=== PATIENT | female | born 1955 | race Two or more races ===

== ENCOUNTER 2019-05-04 01:10 | Inpatient (IN) | payer OTHER ==
[~2019-05-04] VITALS: Ht 157.5 cm; Wt 64.9 kg
[2019-05-04 04:35] VITALS: BP 110/53
--- NOTE | 2019-05-04 04:35 | NUR ---
MS DERMATOLOGY SALES REPRESENTATIVE NOTES PATIENT TRANSFERRED BY AMBULANCE FROM [facility]. PATIENT COMPLAINING OF RIGHT UPPER QUADRANT PAIN, N/V, FOR THE PAST 4 DAYS. PATIENT ALERT & ORIENTED X 4. ON ROOM AIR. STATES INTERMITTENT PAIN THAT IS AGGRAVATED WITH AMBULATION/MOVEMENT. PAIN RATING AT THIS MOMENT IS 3/10. NO COMPLAINTS OF N/V. IV PRESENT ON LEFT AC, SIZE 20, HEP LOCK, INTACT & PATENT. DAUGHTER, NIRANJAN, PRESENT AT BEDSIDE. PATIENT BELONGING LIST COMPLETED. PATIENT NPO FOR THE TIME BEING. BED SET IN LOW & LOCKED, SUPINE POSITION, 2 SIDE RAILS UP, CALL LIGHT WITHIN REACH. WILL CONTINUE TO MONITOR.
[2019-05-04] MEDS ORDERED: LOSA1TAB39 PO (04:50)
[2019-05-04] MEDS ORDERED: CALC-168 PO (04:50)
[2019-05-04] MEDS ORDERED: LETR2.5T PO (04:50)
[2019-05-04 05:05] VITALS: BP 110/55
[2019-05-04] MEDS ORDERED: Z GUARD REMEDY 2 OZ OINT TP PRN (05:30)
[2019-05-04] MEDS ORDERED: IV D5/0.45 NACL 1,000 ML IV SCH (05:30)
[2019-05-04] MEDS ORDERED: ACETAMINOPHEN 325 MG TABLET PO PRN (05:30)
[2019-05-04] MEDS ORDERED: MAG HYDROX/AL HYDROX/SIMETH 30 ML UDC PO PRN (05:30)
[2019-05-04] MEDS ORDERED: MORPHINE SULFATE INJ 2 MG/ML DISP.SYRIN IV PRN (05:30)
[2019-05-04] MEDS ORDERED: MAGNESIUM HYDROXIDE 30 ML UDC PO PRN (05:30)
[2019-05-04] MEDS ORDERED: HYDROCODONE/APAP 5/325MG 1 EACH TABLET PO PRN (05:30)
[2019-05-04] MEDS ORDERED: ONDANSETRON HCL/PF 4 MG/2 ML VIAL IVP PRN (05:30)
[2019-05-04] MEDS ORDERED: PIPERACILLIN /TAZOBACTAM 3.375 G VIAL IV ONE (06:18)
--- NOTE | 2019-05-04 06:49 | NUR ---
MS RN CLOSING NOTES PATIENT SLEEPING IN BED, EASY TO AWAKEN. IVPB ZOSYN RUNNING ON LEFT MIDLINE AC, SIZE 20, AT 100 ML/HR. NO COMPLAINTS OF N/V OR PAIN AT THE MOMENT. PATIENT NPO. CALL LIGHT WITHIN REACH. WILL ENDORSE TO DAY SHIFT NURSE TO FOLLOW PLAN OF CARE.
[2019-05-04] MEDS ORDERED: ZOSYN IVPB 3.375 G in IV D5W 50ml IV ONE (07:00)
[2019-05-04 07:07] LABS: BASOPHILS % (AUTO) 0.1 % (0.0-2.0); HEMATOCRIT 36 % (33-45); HEMOGLOBIN 11.9 g/dL (11.5-14.8); LYMPHOCYTES # (AUTO) 0.9 /CMM (0.8-4.8); LYMPHOCYTES % (AUTO) 7.2 % (20.0-44.0); MEAN CORPUSCULAR HGB CONC 33 g/dl (31.0-36.0); MEAN CORPUSCULAR VOLUME 88 fL (82-100); MONOCYTES # (AUTO) 1.3 /CMM (0.1-1.30); MONOCYTES % (AUTO) 10.2 % (2.0-12.0); NEUTROPHILS # (AUTO) 10.8 /CMM (1.8-8.9); NEUTROPHILS % (AUTO) 82.5 % (43.0-81.0); PLATELET COUNT (AUTO) 169 /CMM (150-450); RED BLOOD CELL COUNT(AUTO) 4.05 MIL/uL (4.0-5.2); WHITE BLOOD COUNT (AUTO) 13.1 K/uL (4.3-11.0)
--- NOTE | 2019-05-04 07:22 | NUR ---
RN OPENING NOTES Patient received on room air, no sob noted, no s/s of pain at this time. Patient remains a/o x4 with L AC #20 D5 1/2 NS @ 75 ml per hour. Bed at the lowest setting, call light within reach, side rails up x2.
[2019-05-04 07:26] LABS: ALBUMIN 2.4 g/dL (3.4-5.0); BILIRUBIN,TOTAL 0.4 mg/dL (0.2-1.0); CALCIUM, SERUM 8.8 mg/dL (8.5-10.1); CREATININE 1.3 mg/dL (0.6-1.3); POTASSIUM 3.1 mmol/L (3.5-5.1); TOTAL PROTEIN, SERUM 7.1 g/dL (6.4-8.2)
[2019-05-04 08:00] VITALS: BP 110/61
[2019-05-04] MEDS: POTASSIUM CL. PREMIX PERIPHER. 50 ML IV SCH ×2 (08:14→10:58)
[2019-05-04] MEDS ORDERED: IV D5/0.45 NACL 1,000 ML IV PRN (08:19)
[2019-05-04] MEDS: LOSARTAN POTASSIUM 50 MG TABLET PO SCH (08:52)
[2019-05-04] MEDS: HYDROCHLOROTHIAZIDE 25 MG TABLET PO SCH (08:53)
[2019-05-04] MEDS ORDERED: Medication Not On Formulary EA (Losartan/Hydrochlorothiazide (Losartan-Hctz 100-25 Mg Ta PO SCH (09:00)
--- NOTE | 2019-05-04 10:48 | NUR ---
NM HIDA SCAN WAS COMPLETED, TECH:RB
[2019-05-04] MEDS ORDERED: KETOROLAC TROMETHAMINE INJ 30 MG/ML VIAL IM PRN (11:30)
[2019-05-04] MEDS ORDERED: DEXTROSE 50%-WATER 50 ML DISP.SYRIN IV PRN (11:30)
[2019-05-04] MEDS: BLOOD SUGAR DIAGNOSTIC 1 EACH STRIP IN SCH ×3 (11:50→21:58)
[2019-05-04] MEDS: PIPERACILLIN /TAZOBACTAM 3.375 G in IV D5W 100 ML IV SCH ×2 (13:04→21:05)
[2019-05-04 16:00] VITALS: BP_SYST 105; BP_SYST 131; BP_DIAS 52; BP_DIAS 64
[2019-05-04] MEDS: ACETAMINOPHEN 650 MG/SUPP.RECT RC PRN (16:55)
--- NOTE | 2019-05-04 17:56 | NUR ---
RN CLOSING NOTES Patient remains on room air, no sob noted, patient denies pain at this time. Suppository tylenol given. Patient was given coverage with a blood glucose of 302 and NPO. ACCOUNT SPECIALIST Jeff aware and ordered the coverage to be given. Patient also moved to 313-1. Bed at the lowest setting, call light within reach, side rails up x2. Will give report to CONNIE COBOS for [facility] bedside. Addendum: 05/04/19 at 1813 by PETER AWAN RN EDIT Patient did not have a blood glucose of 302 and NO COVERAGE WAS GIVEN. ERROR.
--- NOTE | 2019-05-04 19:10 | NUR ---
MS/RN OPENING NOTES: RECEIVED PATIENT IN BED AWAKE WITH FAMILY PRESENT AT THE BEDSIDE. A/OX4. ON ROOM AIR, BREATHING EVEN AND UNLABORED. NO SOB NOTED. NO S/S of ACUTE DISTRESS. IV LINE LOCATED ON THE LEFT AC #20G CLEAN, INTACT, AND FLUSHING WELL, RUNNING D5 1/2 NS AT 75MLS/HR. AMBULATORY AND BRP. STILL ON NPO DIET FOR SURGICAL CONSULT TOMORROW. SKIN ASSESSMENT DONE ABND INTACT. VS WNL. NO NEW ORDERS GIVEN, GI CONSULT WILL BE DONE FOR TOMRORROW MORNING. SAFETY MEASURES ARE IN PLACE. BED IS LOW, LOCKED POSITION WITH SR UP X2. CALL LIGHT WITH REACH AND WILL CONTINUE TO MONITOR ACCORDINGLY.
[2019-05-04 20:00] VITALS: BP 95/59
[2019-05-04] MEDS: NYSTATIN (PYXIS) 500,000 UNIT/5 ML ORAL.SUSP PO SCH (23:11)
[2019-05-05] MEDS: INSULIN REGULAR, HUMAN 100 UNIT/ML 3 ML VIAL SQ PRN ×2 (01:23→06:23)
[2019-05-05] MEDS: PIPERACILLIN /TAZOBACTAM 3.375 G in IV D5W 100 ML IV SCH ×3 (04:40→20:37)
[2019-05-05] MEDS: BLOOD SUGAR DIAGNOSTIC 1 EACH STRIP IN SCH ×4 (06:22→21:58)
--- NOTE | 2019-05-05 06:24 | NUR ---
MS/RN CLOSING NOTES: Patient remains in stable condition. No significant changes. On room air, no sob, not s/s of distress noted. Kept warm and comfortable during my shift. All due medications given as ordered. Maintained NPO status. All nursing needs met and provided. No complains of pain at this time. VS within normal limits. IV on left AC #20g intact and patent, running D5 1/2 NS @ 75mls/hr. Zosyn 3.375 g still running at 25mls/hr. Saftey precautions kept in place. Bed is in low, locked position with SR up x2, Call light within reach. Will give report to day shift RN for [facility] bedside.
[2019-05-05 06:56] LABS: BASOPHILS % (AUTO) 0.1 % (0.0-2.0); HEMATOCRIT 35 % (33-45); HEMOGLOBIN 11.7 g/dL (11.5-14.8); LYMPHOCYTES # (AUTO) 1.1 /CMM (0.8-4.8); LYMPHOCYTES % (AUTO) 10.3 % (20.0-44.0); MEAN CORPUSCULAR HGB CONC 34 g/dl (31.0-36.0); MEAN CORPUSCULAR VOLUME 88 fL (82-100); MONOCYTES # (AUTO) 1.1 /CMM (0.1-1.30); MONOCYTES % (AUTO) 10.9 % (2.0-12.0); NEUTROPHILS # (AUTO) 8.2 /CMM (1.8-8.9); NEUTROPHILS % (AUTO) 78.7 % (43.0-81.0); PLATELET COUNT (AUTO) 205 /CMM (150-450); RED BLOOD CELL COUNT(AUTO) 3.95 MIL/uL (4.0-5.2); WHITE BLOOD COUNT (AUTO) 10.4 K/uL (4.3-11.0)
[2019-05-05 07:15] LABS: ALBUMIN 2.5 g/dL (3.4-5.0); BILIRUBIN,DIRECT 0.2 mg/dL (0.0-0.2); BILIRUBIN,TOTAL 0.3 mg/dL (0.2-1.0); CREATININE 1.1 mg/dL (0.6-1.3); MAGNESIUM 2.4 mg/dL (1.8-2.4); PHOSPHORUS 1.9 mg/dL (2.5-4.9); TOTAL PROTEIN, SERUM 7.5 g/dL (6.4-8.2)
[2019-05-05 07:20] LABS: THYROID STIMULATING HORMONE 0.29 uIU/mL (0.358-3.74)
[2019-05-05 07:22] LABS: POTASSIUM 2.6 mmol/L (3.5-5.1)
--- NOTE | 2019-05-05 07:30 | NUR ---
MS/RN OPENING NOTES: RECEIVED PATIENT IN BED AWAKE WITH FAMILY PRESENT AT THE BEDSIDE. A/OX4. NO S/S of ACUTE DISTRESS NOTED AT THIS TIME. IV FLUIDS ON LEFT AC #20G WITH D5 1/2 NS AT 75MLS/HR. CLEAN, INTACT, AND FLUSHING WELL. SAFETY MEASURES ARE IN PLACE. BED IS LOW, LOCKED POSITION WITH SR UP X2. CALL LIGHT WITH REACH AND WILL CONTINUE TO MONITOR ACCORDINGLY.
[2019-05-05 08:00] VITALS: BP 124/67
[2019-05-05] MEDS: ACETAMINOPHEN 650 MG/SUPP.RECT RC PRN (08:06)
[2019-05-05] MEDS ORDERED: POTASSIUM PHOSPHATE MM 7.5 MMOL in IV D5W 100 ML IV SCH (08:30)
[2019-05-05] MEDS: POTASSIUM CL. PREMIX PERIPHER. 50 ML IV SCH ×4 (08:38→11:36)
[2019-05-05] MEDS: HYDROCHLOROTHIAZIDE 25 MG TABLET PO SCH (09:00)
[2019-05-05] MEDS: LOSARTAN POTASSIUM 50 MG TABLET PO SCH (09:00)
[2019-05-05] MEDS: NYSTATIN (PYXIS) 500,000 UNIT/5 ML ORAL.SUSP PO SCH ×3 (09:20→16:48)
[2019-05-05] MEDS: LETROZOLE 2.5 MG TABLET PO SCH (09:25)
[2019-05-05] MEDS ORDERED: DEXAMETHASONE SOD PHOSPHATE 4 MG/ML VIAL ONE (13:28)
[2019-05-05] MEDS ORDERED: ROCURONIUM BROMIDE 50 MG/5 ML ONE (13:29)
--- NOTE | 2019-05-05 13:30 | NUR ---
RN NOTES PATIENT PICKED UP VIA HOSPITAL BED WITH 2 HOSPITAL STAFF ACCOMPANIED BY DAUGHTER, SCHEDULE FOR SURGERY. PATIENT IS STABLE WITH NO SIGNS OF DISTRESS NOTED AT THIS TIME. V/S WNL.
[2019-05-05] MEDS ORDERED: HYDROMORPHONE INJ 2 MG/ML DISP.SYRIN ONE (13:53)
[2019-05-05] MEDS ORDERED: BUPIVACAINE 0.5 % PF 150 MG/30 ML VIAL ONE (14:06)
[2019-05-05] MEDS ORDERED: MORPHINE SULFATE INJ 2 MG/ML DISP.SYRIN IV PRN (15:30)
[2019-05-05] MEDS ORDERED: ONDANSETRON HCL/PF 4 MG/2 ML VIAL IVP PRN (15:30)
--- NOTE | 2019-05-05 15:45 | NUR ---
RN NOTES PATIENT CAME BACK FROM SURGERY VIA HOSPITAL BED WITH HOSPITAL STAFF AND FAMILY MEMBER. PATIENT IS STABLE WITH NO S/S OF DISTRESS NOTED. WILL CONTINUE TO MONITOR.
[2019-05-05] MEDS: HYDROCODONE/APAP 5/325MG 1 EACH TABLET PO PRN (15:54)
[2019-05-05 16:00] VITALS: BP 101/80
--- NOTE | 2019-05-05 18:32 | NUR ---
MS/RN CLOSING NOTES: PATIENT IN BED AWAKE WITH FAMILY PRESENT AT THE BEDSIDE. A/OX4. NO S/S of ACUTE DISTRESS NOTED THROUGHOUT THE SHIFT. IV FLUIDS ON LEFT AC #20G WITH D5 1/2 NS AT 75MLS/HR. CLEAN, INTACT, AND FLUSHING WELL. SAFETY MEASURES ARE IN PLACE. BED IS LOW, LOCKED POSITION WITH SR UP X2. CALL LIGHT WITH REACH AND WILL ENDORSE TO [employer] PROJECT MANAGER NURSE FOR [facility].
--- NOTE | 2019-05-05 19:30 | NUR ---
MS PAPITO OPENING NOTE RECEIVED PATIENT IN BED. A/O X4. TOLERATING ROOM AIR. RESPIRATIONS ARE EVEN AND UNLABORED. NO S/S SOB NOTED. DENIES PAIN AT THIS TIME. IN NO APPARENT DISTRESS. IV ACCESS IN LAC #20 RUNNING D51/2NS @175ML/HR. BED IS LOW AND LOCKED, SIDE RAILS UP X2, HOB ELEVATED IN SEMI FOWLERS. CALL LIGHT WITHIN REACH. FAMILY AT BEDSIDE. WILL CONTINUE TO MONITOR. Addendum: 05/06/19 at 0507 by KAILA SAWYER RN IV IS RUNNING AT 75ML/HR
[2019-05-05 20:00] VITALS: BP 105/60
--- NOTE | 2019-05-05 22:05 | NUR ---
MS RN NOTE 2200 ACCU CHECK READ BS 195. DID NOT PROVIDE INSULIN COVERAGE D/T FAMILY REFUSING. STATING SHE JUST ATE. WILL CONTINUE TO MONITOR.
[2019-05-06] MEDS: PIPERACILLIN /TAZOBACTAM 3.375 G in IV D5W 100 ML IV SCH ×2 (04:31→13:00)
[2019-05-06] MEDS: BLOOD SUGAR DIAGNOSTIC 1 EACH STRIP IN SCH ×3 (06:14→17:57)
[2019-05-06] MEDS: INSULIN REGULAR, HUMAN 100 UNIT/ML 3 ML VIAL SQ PRN ×2 (06:19→18:30)
--- NOTE | 2019-05-06 06:38 | NUR ---
MS RN CLOSING NOTE PATIENT IN BED. A/O X4. REMAINS TOLERATING ROOM AIR. RESPIRATIONS ARE EVEN AND UNLABORED. NO SOB NOTED THROUGHOUT SHIFT. NO C/O PAIN. NO DISTRESS NOTED. IV ACCESS MAINTAINED IN LAC #20 RUNNING D5 1/5NS @75ML/HR. BED REMAINS LOW AND LOCKED, SIDE RAILS UP X2, HOB ELEVATED IN SEMI FOWLERS. CALL LIGHT WITHIN REACH. FAMILY REMAINS AT BEDSIDE. WILL ENDORSE TO NEXT SHIFT
[2019-05-06 06:59] LABS: CALCIUM, SERUM 8.3 mg/dL (8.5-10.1); CREATININE 1.1 mg/dL (0.6-1.3); MAGNESIUM 2.4 mg/dL (1.8-2.4); PHOSPHORUS 1.6 mg/dL (2.5-4.9); POTASSIUM 3.3 mmol/L (3.5-5.1)
[2019-05-06 07:00] LABS: BASOPHILS % (AUTO) 0.1 % (0.0-2.0); HEMATOCRIT 35 % (33-45); HEMOGLOBIN 11.7 g/dL (11.5-14.8); LYMPHOCYTES # (AUTO) 1.1 /CMM (0.8-4.8); MEAN CORPUSCULAR HGB CONC 34 g/dl (31.0-36.0); MEAN CORPUSCULAR VOLUME 88 fL (82-100); MONOCYTES # (AUTO) 0.4 /CMM (0.1-1.30); MONOCYTES % (AUTO) 4.7 % (2.0-12.0); NEUTROPHILS # (AUTO) 7.5 /CMM (1.8-8.9); NEUTROPHILS % (AUTO) 83.2 % (43.0-81.0); PLATELET COUNT (AUTO) 240 /CMM (150-450); RED BLOOD CELL COUNT(AUTO) 3.96 MIL/uL (4.0-5.2)
--- NOTE | 2019-05-06 07:20 | NUR ---
M/S RN NOTES PATIENT AWAKE IN BED, NO RESPIRATORY DISTRESS, NO C/O PAIN AT THIS TIME. PATIENT'S IV ACCESS SITE INTACT AND PATENT. PATIENT'S NEEDS ATTENDED. BED ON LOWEST LOCKED POSITION, CALL LIGHT WITHIN REACH. WILL CONTINUE TO MONITOR.
[2019-05-06 08:00] VITALS: BP 109/66
[2019-05-06] MEDS ORDERED: BISACODYL (5 MG) 5 MG TABLET.DR PO ONE (09:00)
[2019-05-06] MEDS: LOSARTAN POTASSIUM 50 MG TABLET PO SCH (09:00)
[2019-05-06] MEDS: HYDROCHLOROTHIAZIDE 25 MG TABLET PO SCH (09:00)
[2019-05-06] MEDS: NYSTATIN (PYXIS) 500,000 UNIT/5 ML ORAL.SUSP PO SCH ×3 (09:06→18:01)
[2019-05-06] MEDS ORDERED: POTASSIUM CHLORIDE 20 MEQ TAB.PRT.SR PO ONE (09:30)
[2019-05-06] MEDS: LETROZOLE 2.5 MG TABLET PO SCH (09:40)
[2019-05-06 12:01] LABS: ALBUMIN 2.3 g/dL (3.4-5.0); BILIRUBIN,DIRECT 0.1 mg/dL (0.0-0.2); BILIRUBIN,TOTAL 0.2 mg/dL (0.2-1.0); TOTAL PROTEIN, SERUM 7.3 g/dL (6.4-8.2)
[2019-05-06] MEDS: HYDROCODONE/APAP 5/325MG 1 EACH TABLET PO PRN (12:05)
[2019-05-06] MEDS: POTASSIUM PHOSPHATE MM 7.5 MMOL in IV D5W 100 ML IV SCH ×2 (12:43→16:00)
[2019-05-06 16:00] VITALS: BP 119/72
--- NOTE | 2019-05-06 19:20 | NUR ---
M/S RN NOTES PATIENT AWAKE IN BED, FAMILY AT BEDSIDE. PATIENT IN NO RESPIRATORY DISTRESS, NO C/O PAIN AT THIS TIME. PATIENT'S IV ACCESS SITE INTACT AND PATENT RUNNING POTASSIUM PHOS ORDERED. PATIENT'S NEEDS ATTENDED. DISCHARGE ENDORSED TO ONCOMING NURSE.
--- NOTE | 2019-05-06 19:49 | NUR ---
MS RN NOTES RECEIVED PATIENT AWAKE IN BED WITH NO DISTRESS NOTED. CALL LIGHT WITHIN REACH. DTR AT BEDSIDE. PERIPHERAL LINE INTACT AND PATENT. NO C/O PAIN OR DISCOMFORT. BED IN LOW LOCK SETTING. ROOM FREE OF CLUTTER AND BELONGINGS KEPT NEAR BEDSIDE. WILL CONTINUE TO MONITOR.
[2019-05-06 20:00] VITALS: BP 125/71
--- NOTE | 2019-05-06 21:55 | NUR ---
PATIENT DISCHARGED HOME IN STABLE CONDITION AND ACCOMPANIED BY DTR. DC INSTRUCTIONS GIVEN AND PT/DTR VERBALIZED GOOD UNDERSTANDING. ALL DC PAPERWORK SIGNED AND GIVEN TO PATIENT. PERIPHERAL LINE REMOVED AND TOLERATED WELL WITH NO ACTIVE BLEEDING NOTED. ALL BELONGINGS TAKEN WITH PATIENT. PATIENT ASSISTED TO PRIVATE CAR VIA WC.
== END 2019-05-06 21:55 | disposition home or self-care (01) | DRG 263 ==
LOC: MED 04:04
PROVIDERS: ADMIT Nurse Practitioner Acute Care; ATTEND Nurse Practitioner Acute Care
PROC: 0FT44ZZ Resection of Gallbladder, Percutaneous Endoscopic Approach (ICD-10-PCS; principal; 2019-05-05)
DX: K80.00 Calculus of gallbladder with acute cholecystitis without obstruction (principal); E44.0 Moderate protein-calorie malnutrition; K85.90 Acute pancreatitis without necrosis or infection, unspecified; B37.0 Candidal stomatitis; E83.39 Other disorders of phosphorus metabolism; N28.1 Cyst of kidney, acquired; C50.911 Malignant neoplasm of unspecified site of right female breast; I10 Essential (primary) hypertension; M19.90 Unspecified osteoarthritis, unspecified site; E87.6 Hypokalemia; Z90.11 Acquired absence of right breast and nipple; Z79.84 Long term (current) use of oral hypoglycemic drugs; Z79.899 Other long term (current) drug therapy; E11.9 Type 2 diabetes mellitus without complications
CPT/HCPCS: 36415; 71045-TC; 78226; 80048-TC; 80053-TC; 80061-TC; 80076-TC; 82150-TC; 82962-TC; 83690-TC; 83735-TC; 84100-TC; 84132-TC; 84439-TC; 84443-TC; 84481; 85025-TC; 86850-TC; 87081-TC; 88304-TC; A9537; G0378; J0330; J0690; J1100; J1170; J1815; J1885; J2270; J2405; J2543; J2704; J2710; J3480; J3490; J7060